=== PATIENT | female | born 1990 | race Native Hawaiian/Other Pacific Islander ===

== ENCOUNTER 2017-01-04 06:55 | Inpatient (IN) | payer OTHER ==
[~2017-01-04] VITALS: Ht 154.9 cm; Wt 64.0 kg
[2017-01-04] MEDS ORDERED: LR 1,000 ML IV SCH (09:43)
[2017-01-04] MEDS ORDERED: LR 500 ML IV ONE ×2 (09:43→11:34)
[2017-01-04] MEDS ORDERED: OXYTOCIN/NORMAL SALINE 1,000 ML IV SCH ×2 (09:43→18:35)
[2017-01-04] MEDS ORDERED: NALBUPHINE HCL 10 MG/ML AMP IVP PRN (09:45)
[2017-01-04] MEDS ORDERED: TERBUTALINE SULFATE 1 MG/ML VIAL SUBCUT ONE (09:45)
[2017-01-04 10:08] LABS: BASOPHILS % (AUTO) 0.3 % (0.0-2.0); HEMOGLOBIN 11.5 g/dL (12.0-16.0); LYMPHOCYTES # (AUTO) 0.9 K/uL (1.0-5.5); LYMPHOCYTES % (AUTO) 8.1 % (20.5-51.5); MEAN CORPUSCULAR HEMOGLOBIN 24 pg (27-31); MEAN CORPUSCULAR HGB CONC 32 % (32-36); MEAN CORPUSCULAR VOLUME 77 fL (79.0-98.0); MONOCYTES # (AUTO) 0.2 K/uL (0.0-1.0); MONOCYTES % (AUTO) 2.2 % (1.7-9.3); NEUTROPHILS # (AUTO) 9.6 K/uL (1.8-7.7); NEUTROPHILS % (AUTO) 89.4 % (40.0-70.0); PLATELET COUNT (AUTO) 316 K/uL (130-430); RED BLOOD CELL COUNT(AUTO) 4.71 MIL/uL (4.2-6.2); RED CELL DISTRIBUTION WIDTH 14.8 % (9.0-15.0); WHITE BLOOD COUNT (AUTO) 10.7 K/uL (4.8-10.8)
[2017-01-04] MEDS: CLINDAMYCIN 900 mg/50mL D5W 50 ML IV SCH ×2 (10:15→17:43)
[2017-01-04] MEDS ORDERED: fentaNYL CITRATE/PF 100 MCG/2 ML AMP ONE ×2 (10:58→16:24)
[2017-01-04] MEDS ORDERED: FENT2mCg/mL-ROPIVA0.2%/NS EPID 150 ML EP ONE (10:59)
[2017-01-04] MEDS ORDERED: ePHEDrine sulfate 50 MG/ML VIAL IVP PRN (11:45)
[2017-01-04] MEDS ORDERED: FENT2mCg/mL-ROPIVA0.2%/NS EPID 150 ML EP SCH (11:45)
[2017-01-04] MEDS ORDERED: fentaNYL CITRATE/PF 100 MCG/2 ML AMP EP ONE ×2 (11:45→16:24)
[2017-01-04 16:44] VITALS: BP_SYST 109
[2017-01-04] MEDS ORDERED: OXYTOCIN/NORMAL SALINE 1,000 ML IV ONE (18:35)
[2017-01-04] MEDS ORDERED: LANOLIN 7 GM OINT. TP PRN (18:45)
[2017-01-04] MEDS ORDERED: MEASLES,MUMPS&RUBELLA VACC/PF 12500 UNIT/0.5 ML VIAL SUBQ PRN (18:45)
[2017-01-04] MEDS ORDERED: SENNOSIDES/DOCUSATE SODIUM 1 TAB TABLET(SENOKOT-S) PO PRN (18:45)
[2017-01-04] MEDS ORDERED: RHO(D) IMMUNE GLOBULIN/MALTOSE 1500 UNITS/1.3 ML (WINHRO) IM PRN (18:45)
[2017-01-04] MEDS ORDERED: DERMOPLAST SPRAY TP PRN (18:45)
[2017-01-04] MEDS ORDERED: METHYLERGONOVINE MALEATE 0.2 MG TABLET PO PRN (18:45)
[2017-01-04] MEDS ORDERED: OXYCODONE/ACETAMINOPHEN 5-325 TABLET PO PRN (18:45)
[2017-01-04] MEDS ORDERED: DOCUSATE SODIUM 100 MG CAPSULE PO PRN (18:45)
[2017-01-04] MEDS ORDERED: ACETAMINOPHEN 325 MG TABLET PO PRN (18:45)
[2017-01-04] MEDS ORDERED: GLYCERIN/WITCH HAZEL (TUCKS PADS) TP PRN (18:45)
[2017-01-04] MEDS ORDERED: ANUSOL 1 EA SUPP.RECT (PREPARATION H) RC PRN (18:45)
[2017-01-04] MEDS ORDERED: HYDROCORTISONE 0.5%, 28.35 GM TOPICAL CREAM TP PRN (18:45)
[2017-01-04] MEDS: IBUPROFEN 600 MG TABLET PO SCH (20:52)
[2017-01-04] MEDS ORDERED: TEMAZEPAM 15 MG CAPSULE PO PRN (21:00)
[2017-01-05] MEDS: IBUPROFEN 600 MG TABLET PO SCH ×3 (02:54→17:51)
[2017-01-05 06:19] LABS: HEMATOCRIT 26.9 % (36-48); HEMOGLOBIN 8.8 g/dL (12.0-16.0)
[2017-01-05] MEDS: OXYCODONE/ACETAMINOPHEN 5-325 TABLET PO PRN ×2 (06:59→15:23)
== END 2017-01-05 19:00 | disposition home or self-care (01) | DRG 775 ==
LOC: SPU 06:55 → INTOOBSV 07:07 → SPU 07:07 → UNDOADMOB 07:07 → OBSVTOIN 09:43
PROVIDERS: ADMIT Obstetrics & Gynecology; ATTEND Obstetrics & Gynecology
PROC: 10E0XZZ Delivery of Products of Conception, External Approach (ICD-10-PCS; principal; 2017-01-04)
PROC: 0KQM0ZZ Repair Perineum Muscle, Open Approach (ICD-10-PCS; 2017-01-04)
PROC: 3E0S3CZ (ICD-10-PCS; 2017-01-04)
PROC: 00HU33Z Insertion of Infusion Device into Spinal Canal, Percutaneous Approach (ICD-10-PCS; 2017-01-04)
PROC: 3E0234Z Introduction of Serum, Toxoid and Vaccine into Muscle, Percutaneous Approach (ICD-10-PCS; 2017-01-04)
DX: O99.824 Streptococcus B carrier state complicating childbirth (principal); O24.429 Gestational diabetes mellitus in childbirth, unspecified control; O69.81X0 Labor and delivery complicated by cord around neck, without compression, not applicable or unspecified; O70.1 Second degree perineal laceration during delivery; Z3A.38 38 weeks gestation of pregnancy; Z37.0 Single live birth; Z23 Encounter for immunization
CPT/HCPCS: 36415; 81002-TC; 82947-TC; 82962; 85018-TC; 85025; 86886; 86900; 86901; 94760; G0378; J2590; J3010; J3490; J7120